=== PATIENT | female | born 1960 | race Caucasian/White ===

== ENCOUNTER 2016-12-27 17:36 | Emergency (ER) | payer BC ==
[2016-12-27] MEDS ORDERED: MORPHINE 2 MG/ML SYRINGE IVP STA ×2 (18:17→19:23)
[2016-12-27] MEDS ORDERED: SODIUM CHLORIDE 0.9% 1,000 ML IV ONE (18:18)
[2016-12-27] MEDS ORDERED: MORPHINE 2 MG/ML SYRINGE ONE (18:26)
[2016-12-27] MEDS ORDERED: NITROGLYCERIN SL 0.4 MG TABLET SL ONE (19:09)
[2016-12-27] MEDS: NITROGLYCERIN SL 0.4 MG TABLET SL PRN ×3 (19:12→20:28)
[2016-12-27] MEDS ORDERED: ASPIRIN CHEW 81 MG TABLET PO STA (19:23)
[2016-12-27] MEDS ORDERED: ASPIRIN CHEW 81 MG TABLET ONE (19:25)
[2016-12-27] MEDS ORDERED: HEPARIN 5,000 UNIT/ML VIAL IVP ONE (20:28)
[2016-12-27] MEDS ORDERED: NITROGLYCERIN 50 MG/250 ML 250 ML IV STA (20:28)
[2016-12-27] MEDS ORDERED: HEPARIN 25,000 UNITS/500 ML 500 ML IV STA (20:35)
[2016-12-27] MEDS ORDERED: HEPARIN 25,000 UNITS/500 ML 500 ML IV ONE (20:36)
[2016-12-27] MEDS ORDERED: NITROGLYCERIN 50 MG/250 ML 250 ML IV ONE (20:36)
[2016-12-27] MEDS ORDERED: HEPARIN 5,000 UNIT/ML VIAL ONE (20:36)
== END 2016-12-27 22:08 | disposition short-term general hospital (02) ==
DX: I21.4 Non-ST elevation (NSTEMI) myocardial infarction (principal); I25.10 Atherosclerotic heart disease of native coronary artery without angina pectoris; I25.2 Old myocardial infarction; I10 Essential (primary) hypertension; Z95.1 Presence of aortocoronary bypass graft; E78.00 Pure hypercholesterolemia, unspecified; Z79.82 Long term (current) use of aspirin
CPT/HCPCS: 36415; 71010; 80053; 83690; 84484; 85025; 85379; 93005; 93010; 96365; 96368; 96375; 96376; 99285; A9270

== ENCOUNTER 2016-12-27 22:08 | Outpatient (CLI) | payer BC | END 2016-12-27 22:09 | disposition short-term general hospital (02) | DX: I21.4 Non-ST elevation (NSTEMI) myocardial infarction (principal) | CPT/HCPCS: A0170; A0425; A0426 ==

== ENCOUNTER 2017-01-29 14:03 | Emergency (ER) | payer BC ==
[2017-01-29 14:16] VITALS: BP 140/90
--- NOTE | 2017-01-29 14:21 | ED Physician Documentation ---
PD HPI UPPER EXT INJURY - Stated complaint Stated Complaint: PINKY INJURY - Chief complaint Chief Complaint: Ext Problem - History obtained from History obtained from: Patient - History of Present Illness Location: Left, Finger (5th digit) Type of injury: Other (hit it on a wooden console) Where injury occurred: Home Timing - onset: How many days ago (2) Timing - duration: Days (2) Timing - details: Abrupt onset Pain level max: 8 Pain level now: 5 Improved by: Rest, Ice, Immobilization Worsened by: Moving, Palpating Associated symptoms: Swelling, Discolored (ecchymosis). No: Weakness, Numbness , Tingling Similar symptoms before: Has not had sx before Recently seen: Not recently seen Review of Systems Neurologic: denies: Focal weakness, Numbness PD PAST MEDICAL HISTORY - Past Medical History Cardiovascular: Hypertension, High cholesterol, Coronary artery disease, [place] - Past Surgical History Past Surgical History: Yes General: Cholecystectomy Ortho: Arthroscopic surgery Cardiovascular: CABG - Present Medications Home Medications: Ambulatory Orders Medication Instructions Recorded Confirmed Aspirin 81 mg PO DAILY 04/04/13 01/29/17 Losartan [Cozaar] 40 mg PO DAILY 10/09/13 01/29/17 Duloxetine HCl [Cymbalta] 60 mg PO DAILY 05/18/16 01/29/17 Pravastatin Sodium [Pravachol] 1 tab PO DAILY 05/18/16 01/29/17 Isosorbide Dinitrate [Isordil] 1 tab PO DAILY 01/29/17 01/29/17 Metoprolol Tartrate 50 mg PO BID 01/29/17 01/29/17 - Allergies Allergies/Adverse Reactions: Allergies Allergy/AdvReac Type Severity Reaction Status Date / Time No Known Drug Allergies Allergy Verified 01/29/17 14:16 - Social History Does the pt smoke?: No Smoking Status: Never smoker Does the pt drink ETOH?: No Does the pt have substance abuse?: No - Immunizations Immunizations are current?: Yes Immunizations: TDAP current <10years - POLST Patient has POLST: No PD ED PE NORMAL - Vitals Vital signs reviewed: Yes - General General: Alert and oriented X 3 - Derm Derm: Warm and dry - Extremities Extremities: Other (L 5th digit, swelling, TTP over the distal phalanx and mid phalanx. NVI. no subungual hematoma) - Neuro Neuro: Alert and oriented X 3 Results - Vitals Vitals: Vital Signs - 24 hr 01/29/17 14:12 Temperature 36.3 C L Heart Rate 105 H Respiratory 18 Rate Blood Pressure 140/90 H O2 Saturation 99 Oxygen O2 Source Room air - Rads (name of study) L 5th digit Radiology: Prelim report reviewed, EMP read contemporaneously, See rad report ( Small mildly displaced avulsion fracture from the dorsal fifth distal phalangeal base) Procedures - Splint (location) 5th digit Splint applied by: Physician, Tech Type of splint: Metal foam finger splint (hyperextension) Other: Patient tolerated well PD MEDICAL DECISION MAKING - ED course Complexity details: reviewed results, considered differential, d/w patient ED course: Patient with a mildly displaced avulsion fracture at the base of the fifth distal phalanx. Placed in a hyperextension finger splint. We will have her follow-up with orthopedics. Neurovascularly intact. Patient counseled regarding signs and symptoms for which I believe and urgent re-evaluation would be necessary. Patient with good understanding of and agreement to plan and is comfortable going home at this time This document was made in part using voice recognition software. While efforts are made to proofread this document, sound alike and grammatical errors may occur. Departure - Departure Disposition: 01 Home, Self Care Clinical Impression: Closed fracture of distal phalanx of digit of hand Condition: Good Instructions: ED Fx Finger Closed Follow-Up: Yordy Wilkins MD [Primary Care Provider] - [facility] [Provider Group] - Within 1 week () Comments: You need to follow up with orthopedics for further evaluation and care. Discharge Date/Time: 01/29/17 14:48
--- NOTE | 2017-01-29 14:59 | XRAY Preliminary Report ---
Exam: XR Finger(s) LT IMPRESSION: Small mildly displaced avulsion fracture from the dorsal fifth distal phalangeal base. [facility] SITE ID: [id number]
--- NOTE | 2017-01-29 15:01 | XRAY Report ---
EXAM: LEFT FIFTH DIGIT RADIOGRAPHY EXAM DATE: 01/29/2017 02:37 PM. CLINICAL HISTORY: Left digit crush injury 2 days ago with pain, bruising, and swelling. COMPARISON: None. TECHNIQUE: 3 views. FINDINGS: Bones: Mildly displaced small avulsion fracture from the dorsal base of the fifth distal phalanx. Joints: Normal alignment. Soft Tissues: Soft tissue swelling overlying the fracture site. IMPRESSION: Small mildly displaced avulsion fracture from the dorsal fifth distal phalangeal base. [facility] Referring Provider Line: [phone] SITE ID: [id number]
== END 2017-01-29 14:48 | disposition home or self-care (01) ==
LOC: ED 14:03
DX: S62.637A Displaced fracture of distal phalanx of left little finger, initial encounter for closed fracture (principal); W22.03XA Walked into furniture, initial encounter; Y92.009 Unspecified place in unspecified non-institutional (private) residence as the place of occurrence of the external cause; I10 Essential (primary) hypertension
CPT/HCPCS: 29130; 73140; 99283

== ENCOUNTER 2017-05-16 09:44 | Emergency (ER) | payer BC ==
[2017-05-16 09:49] VITALS: BP 147/86
[2017-05-16] MEDS ORDERED: DEXAMETHASONE 10 MG/ML VIAL PO STA (10:20)
--- NOTE | 2017-05-16 10:23 | ED Physician Documentation ---
PD HPI HEENT - Stated complaint Stated Complaint: SINUS - Chief complaint Chief Complaint: Heent - History obtained from History obtained from: Patient, Family - History of Present Illness Timing - onset: How many days ago (5) Timing - duration: Days (5) Timing - details: Gradual onset, Still present Location: Sinuses Improves: Medication Associated symptoms: Congestion, Rhinorrhea, Headache, Cough Similar symptoms before: Diagnosis (sinusitis) Recently seen: Not recently seen - Additional information Additional information: 57-year-old female with a history of coronary artery disease and hypertension has developed sinus symptoms again. She has had sinus infection previously was last treated 3 months ago. She has developed symptoms again she is developed a bit of sinus congestion right maxillary sinus pain cough drainage down the back of her throat. She is also had some diarrhea and nausea associated with this. She has a small spot of skin on her left lower abdominal wall that is erythematous and consistent with she with what she has had previously with MRSA. Review of Systems Constitutional: reports: Fatigue. denies: Fever, Chills Eyes: denies: Decreased vision Ears: reports: Loss of hearing, Ear pain Nose: reports: Rhinorrhea / runny nose, Congestion, Sinus pressure / pain Throat: reports: Sore throat Cardiac: denies: Chest pain / pressure, Palpitations Respiratory: reports: Cough. denies: Dyspnea GI: reports: Nausea, Diarrhea. denies: Abdominal Pain, Vomiting, Constipation : denies: Dysuria, Frequency Skin: reports: Lesions Musculoskeletal: denies: Neck pain, Back pain, Extremity pain Neurologic: denies: Generalized weakness, Focal weakness, Numbness PD PAST MEDICAL HISTORY - Past Medical History Past Medical History: Yes Cardiovascular: Hypertension, High cholesterol, Coronary artery disease, [place] - Past Surgical History Past Surgical History: Yes General: Cholecystectomy Ortho: Arthroscopic surgery Cardiovascular: CABG - Present Medications Home Medications: Ambulatory Orders Medication Instructions Recorded Confirmed Aspirin 81 mg PO DAILY 04/04/13 05/16/17 Losartan [Cozaar] 40 mg PO DAILY 10/09/13 05/16/17 Duloxetine HCl [Cymbalta] 60 mg PO DAILY 05/18/16 05/16/17 Pravastatin Sodium [Pravachol] 1 tab PO DAILY 05/18/16 05/16/17 Isosorbide Dinitrate [Isordil] 1 tab PO DAILY 01/29/17 05/16/17 Metoprolol Tartrate 50 mg PO BID 01/29/17 05/16/17 Azithromycin [Zithromax] 250 mg PO DAILY #6 tablet 05/16/17 Mupirocin Calcium [Bactroban] 1 gm TP BID #15 cream..g. 05/16/17 - Allergies Allergies/Adverse Reactions: Allergies Allergy/AdvReac Type Severity Reaction Status Date / Time No Known Drug Allergies Allergy Verified 05/16/17 09:49 - Social History Does the pt smoke?: No Smoking Status: Never smoker Does the pt drink ETOH?: No Does the pt have substance abuse?: No - Immunizations Immunizations are current?: Yes Immunizations: TDAP current <10years - POLST Patient has POLST: No PD ED PE NORMAL - Vitals Vital signs reviewed: Yes (Hypertensive) - General General: No acute distress, Well developed/nourished - HEENT HEENT: Atraumatic, PERRL, EOMI, Other (The left TM is with erythema along the umbo and rounding of the landmark the right TM is distorted and erythematous. There is sinus point tenderness over the right maxillary sinus. The frontal sinuses without tenderness the left maxillary sinuses without tenderness the pharynx is benign.) - Neck Neck: Supple, no meningeal sign, No bony TTP - Cardiac Cardiac: RRR, No murmur - Respiratory Respiratory: No respiratory distress - Abdomen Abdomen: Soft, Non tender - Back Back: No CVA TTP, No spinal TTP - Derm Derm: Normal color, Warm and dry, Other (There is a sub-centimeter erythematous papule on the left lower abdominal wall consistent with a dermal MRSA infection. There does not appear to be any cellulitis and specifically no fluctuance.) - Extremities Extremities: No deformity, No edema - Neuro Neuro: No motor deficit, No sensory deficit, Normal speech - Psych Psych: Normal mood, Normal affect Results - Vitals Vitals: Vital Signs - 24 hr 05/16/17 09:46 Temperature 36.2 C L Heart Rate 72 Respiratory 16 Rate Blood Pressure 147/86 H O2 Saturation 95 Oxygen O2 Source Room air PD MEDICAL DECISION MAKING - ED course Complexity details: reviewed old records, considered differential, d/w patient, d/w family ED course: 57-year-old female sinus symptoms has had sinus infection previously and appears to have a MRSA skin lesion as well. Here in the emergency department she is administered dexamethasone [address] her on some azithromycin I have instructed her to follow-up with her primary should she have failure of this regimen. We will also place her on some Bactroban ointment for the MRSA. Departure - Departure Disposition: Home, Self Care Clinical Impression: MRSA infection Sinusitis, acute maxillary Qualifiers: Recurrence: recurrent Qualified Code(s): J01.01 - Acute recurrent maxillary sinusitis Condition: Stable Instructions: ED Sinusitis Abx Tx, MRSA Infec Follow-Up: Yordy Wilkins MD [Primary Care Provider] - Prescriptions: Mupirocin Calcium [Bactroban] 1 gm TP BID #15 cream..g. Azithromycin [Zithromax] 250 mg PO DAILY #6 tablet
[2017-05-16] MEDS ORDERED: DEXAMETHASONE 10 MG/ML VIAL ONE (10:30)
[2017-05-16] MEDS ORDERED: CHERRY SYRUP 10 ML UDC PO ONE (10:30)
== END 2017-05-16 10:32 | disposition home or self-care (01) ==
LOC: ED 09:44
DX: J01.01 Acute recurrent maxillary sinusitis (principal); L08.9 Local infection of the skin and subcutaneous tissue, unspecified; B95.62 Methicillin resistant Staphylococcus aureus infection as the cause of diseases classified elsewhere; I10 Essential (primary) hypertension; I25.10 Atherosclerotic heart disease of native coronary artery without angina pectoris; Z95.1 Presence of aortocoronary bypass graft; I25.2 Old myocardial infarction; E78.00 Pure hypercholesterolemia, unspecified; Z79.82 Long term (current) use of aspirin
CPT/HCPCS: 99283; A9270

== ENCOUNTER 2019-10-18 07:37 | Outpatient (CLI) | payer MEDICAID | END 2019-10-18 07:38 | disposition critical access hospital (66) | LOC: EMS 07:37 | PROVIDERS: ATTEND Surgery | DX: M79.602 Pain in left arm (principal) | CPT/HCPCS: A0425; A0427; A0999 ==

== ENCOUNTER 2019-10-18 08:12 | Emergency (ER) | payer BC, MEDICAID ==
[2019-10-18] MEDS ORDERED: KETOROLAC 30 MG/ML VIAL IVP STA (08:22)
--- NOTE | 2019-10-18 08:26 | ED Physician Documentation ---
History of Present Illness - Stated complaint Stated Complaint: ARM PX - History obtained from History obtained from: Patient, Family, EMS - History of Present Illness Timing: How many weeks ago (10) - Additonal information Additional information: 59-year-old female with history of coronary artery disease status post CABG has developed pain in her left arm. She has had this pain for about 2-1/2 months it hurts when she moves her arm in the back of her elbow. She is able to get comfortable if she is motionless but if she stays motionless too long the arm will get painful as well. This morning she had severe pain bad enough that she ended up calling the ambulance. She has had some relief of the pain with use of intravenous fentanyl. The patient denies any specific current illness associated with this. She states that she has been having some difficulty getting comfortable the entire time. Her pain is progressively gotten worse. She does not recall an injury to the area. She has not had these symptoms previously. Review of Systems Constitutional: denies: Fever, Chills, Myalgias Eyes: denies: Decreased vision Ears: denies: Ear pain Nose: denies: Rhinorrhea / runny nose, Congestion Throat: denies: Sore throat Cardiac: denies: Chest pain / pressure, Palpitations Respiratory: denies: Dyspnea, Cough GI: denies: Abdominal Pain, Nausea, Vomiting : denies: Dysuria, Frequency Skin: denies: Rash Musculoskeletal: reports: Extremity pain, Joint pain. denies: Neck pain, Back pain, Extremity swelling, Joint swelling Neurologic: denies: Generalized weakness, Focal weakness, Numbness PD PAST MEDICAL HISTORY - Past Medical History Cardiovascular: Hypertension, High cholesterol, Coronary artery disease, [place] - Past Surgical History Past Surgical History: Yes General: Cholecystectomy Ortho: Arthroscopic surgery Cardiovascular: CABG - Present Medications Home Medications: Ambulatory Orders Medication Instructions Recorded Confirmed Aspirin 81 mg PO DAILY 04/04/13 05/16/17 Losartan [Cozaar] 40 mg PO DAILY 10/09/13 05/16/17 Duloxetine HCl [Cymbalta] 60 mg PO DAILY 05/18/16 05/16/17 Pravastatin Sodium [Pravachol] 1 tab PO DAILY 05/18/16 05/16/17 Isosorbide Dinitrate [Isordil] 1 tab PO DAILY 01/29/17 05/16/17 Metoprolol Tartrate 50 mg PO BID 01/29/17 05/16/17 Azithromycin [Zithromax] 250 mg PO DAILY #6 tablet 05/16/17 Mupirocin Calcium [Bactroban] 1 gm TP BID #15 cream..g. 05/16/17 Hydrocodone/Acetaminophen 1 - 2 each PO Q6H PRN #14 tablet 10/18/19 [Hydrocodon-Acetaminophen 5-325] - Allergies Allergies/Adverse Reactions: Allergies Allergy/AdvReac Type Severity Reaction Status Date / Time No Known Drug Allergies Allergy Verified 10/18/19 08:26 - Social History Does the pt smoke?: No Smoking Status: Never smoker Does the pt drink ETOH?: No Does the pt have substance abuse?: No - Immunizations Immunizations are current?: Yes Immunizations: TDAP current <10years - POLST Patient has POLST: No PD ED PE NORMAL - Vitals Vital signs reviewed: Yes - General General: Alert and oriented X 3, No acute distress, Well developed/nourished - HEENT HEENT: Atraumatic, PERRL, EOMI - Neck Neck: Supple, no meningeal sign, No bony TTP - Cardiac Cardiac: RRR, No murmur - Respiratory Respiratory: No respiratory distress, Clear bilaterally - Abdomen Abdomen: Soft, Non tender - Back Back: No CVA TTP, No spinal TTP - Derm Derm: Normal color, Warm and dry, No rash - Extremities Extremities: No deformity, No edema, Other (There is no specific point tenderness to the left upper extremity. There is pain with movement that is dire cted to the posterior elbow. There is not much exacerbation of the pain with supination or pronation of the forearm and there is less pain with the elbow supported while moving it through a ROM. There is much worse pain if the patient is attempting to move it herself. The shoulder is not tender specifically and movement of the shoulder joint hurts at the elbow. There is no swelling redness or palpable mass or crepitence to the left arm. Distal n/v is intact. ) - Neuro Neuro: Alert and oriented X 3, research aide 2-12 intact, No motor deficit, No sensory deficit, Normal speech Eye Opening: Spontaneous Motor: Obeys Commands Verbal: Oriented GCS Score: 15 - Psych Psych: Normal mood, Normal affect Results - Vitals Vitals: Vital Signs - 24 hr 10/18/19 10/18/19 10/18/19 08:11 09:30 10:00 Temperature 36.3 C L Heart Rate 77 61 61 Respiratory 16 17 14 Rate Blood Pressure 147/92 H 154/80 H 162/86 H O2 Saturation 98 95 94 10/18/19 11:00 Temperature Heart Rate 64 Respiratory 16 Rate Blood Pressure 153/85 H O2 Saturation 95 Oxygen O2 Source Room air - EKG (time done) 0835 Rate: Rate (enter#) (61) Rhythm: NSR Ischemia: Normal ST segments Compare to prior EKG: Unchanged from prior EKG (SPT 12-27-2016 no changes ) Computer interpretation: Agree with computer - Labs Labs: Laboratory Tests 10/18/19 10/18/19 10/18/19 09:21 09:21 09:21 WBC 7.8 RBC 4.78 Hgb 14.8 Hct 45.3 MCV 94.8 MCH 31.0 MCHC 32.7 RDW 12.6 Plt Count 236 MPV 10.2 Neut # (Auto) 5.3 Lymph # (Auto) 1.7 [place] # (Auto) 0.5 Eos # (Auto) 0.2 Baso # (Auto) 0.1 Absolute Nucleated RBC 0.00 Nucleated RBC % 0.0 Sodium 137 Potassium 4.0 Chloride 104 Carbon Dioxide 22 Anion Gap 11.0 BUN 20 Creatinine 0.6 Estimated GFR (MDRD) 102 Glucose 127 H Calcium 8.7 Total Bilirubin 2.0 H AST 30 ALT 42 Alkaline Phosphatase 38 L Troponin I High Sens 5.7 Total Protein 7.1 Albumin 3.9 Globulin 3.2 Albumin/Globulin Ratio 1.2 Lipase 39 - Rads (name of study) humerus Radiology: Prelim report reviewed (Impression: No fracture or bone lesion seen.), EMP read indepedently, See rad report Elbow Radiology: Prelim report reviewed, EMP read indepedently, See rad report Chest Radiology: Prelim report reviewed (Impression: No acute radiographic cardiopulmonary process.), EMP read indepedently, See rad report PD MEDICAL DECISION MAKING - ED course Complexity details: reviewed results, re-evaluated patient, considered differential, d/w patient, d/w family ED course: 59-year-old female with a 2-month plus history of pain in the left arm has been moving from 1 house to another in [place]. She has done a lot of lifting. Today she has some tenderness to the arm she has no evidence of fracture on her x-ray or unusual bony abnormality. She is able to move her arm in a range of motion as long as it is supported if there is any tension on the muscles she will have pain. I suspect she has irritated a muscle attachment from a myofascial strain. She is placed into a sling she does have some improvement with use of Toradol and dexamethasone will provide some pain medication. The patient was reassured about her pain and there is no evidence of myocardial infarction. Departure - Departure Disposition: 01 Home, Self Care Clinical Impression: Acute myofascial strain Condition: Stable Instructions: ED Myofascial Pain Syndrome Follow-Up: Yordy Wilkins MD [Primary Care Provider] - Prescriptions: Hydrocodone/Acetaminophen [Hydrocodon-Acetaminophen 5-325] 1 - 2 each PO Q6H PRN #14 tablet PRN Reason: pain
--- NOTE | 2019-10-18 09:19 | XRAY Report ---
Reason: posterior pain with movement Procedure Date: 10/18/2019 Accession Number: [id number] / [id number] Procedure: XR - Elbow 3 View LT CPT Code: Final Report FULL RESULT: EXAM: LEFT ELBOW RADIOGRAPHY EXAM DATE: 10/18/2019 08:57 AM. CLINICAL HISTORY: Posterior pain with movement. COMPARISON: ELBOW 3 VIEW RT 03/15/2016 4:52 PM. TECHNIQUE: 3 views. FINDINGS: Bones: No fracture. No bone lesion. Joints: No dislocation. No effusion. Osteophyte lipping with some joint space loss. Soft Tissues: Normal. No soft tissue swelling. IMPRESSION: 1. No fracture or dislocation. 2. Mild osteoarthritis [facility]
--- NOTE | 2019-10-18 09:20 | XRAY Report ---
Reason: pain with movement Procedure Date: 10/18/2019 Accession Number: [id number] / [id number] Procedure: XR - Humerus LT CPT Code: Final Report FULL RESULT: EXAM: LEFT HUMERUS RADIOGRAPHY EXAM DATE: 10/18/2019 08:57 AM. CLINICAL HISTORY: Pain with movement. COMPARISON: None. TECHNIQUE: 2 views. FINDINGS: Bones: No fracture. No bone lesion. Joints: No dislocation. Degenerative acromioclavicular joint with osteophytosis. Soft Tissues: Normal. No soft tissue swelling. IMPRESSION: No fracture or bone lesion seen [facility]
--- NOTE | 2019-10-18 09:21 | XRAY Report ---
Reason: chest pain Procedure Date: 10/18/2019 Accession Number: [id number] / [id number] Procedure: XR - Chest 2 View X-Ray CPT Code: 44192 Final Report FULL RESULT: EXAM: CHEST RADIOGRAPHY EXAM DATE: 10/18/2019 08:57 AM. CLINICAL HISTORY: Chest pain. COMPARISON: CHEST 1 VIEW 12/27/2016 6:00 PM. TECHNIQUE: 2 views. FINDINGS: Lungs/Pleura: Low volumes. Vascular crowding. No focal opacities. No effusions. Mediastinum: Stable. CABG. Other: Median sternotomy. IMPRESSION: No acute radiographic cardiopulmonary process [facility]
[2019-10-18 09:27] LABS: BASOPHILS # (AUTO) 0.1 10^3/uL (0.0-0.1); BASOPHILS % (AUTO) 0.6 %; EOSINOPHILS # (AUTO) 0.2 10^3/uL (0.0-0.7); EOSINOPHILS % (AUTO) 2.6 %; HGB - HEMOGLOBIN 14.8 g/dL (12.0-16.0); LYMPHOCYTES # (AUTO) 1.7 10^3/uL (1.5-3.5); LYMPHOCYTES % (AUTO) 22.1 %; MEAN CORPUSCULAR HGB CONC 32.7 g/dL (32.0-36.0); MEAN CORPUSCULAR VOLUME 94.8 fL (81.0-99.0); MEAN PLATELET VOLUME 10.2 fL (7.9-10.8); MONOCYTES # (AUTO) 0.5 10^3/uL (0.0-1.0); MONOCYTES % (AUTO) 6.4 %; NEUTROPHILS # (AUTO) 5.3 10^3/uL (1.5-6.6); NEUTROPHILS % (AUTO) 67.9 %; PLT - PLATELET COUNT 236 10^3/uL (130-450); RED BLOOD COUNT 4.78 10^6/uL (4.20-5.40); RED CELL DISTRIBUTION WIDTH 12.6 % (12.0-15.0); WHITE BLOOD COUNT 7.8 x10^3/uL (4.8-10.8)
[2019-10-18 09:51] LABS: ALBUMIN 3.9 g/dL (3.2-5.5); ALBUMIN/GLOBULIN RATIO 1.2 (1.0-2.2); CALCIUM 8.7 mg/dL (8.5-10.3); CREATININE 0.6 mg/dL (0.4-1.0); TOTAL PROTEIN 7.1 g/dL (6.7-8.2)
[2019-10-18] MEDS ORDERED: DEXAMETHASONE 10 MG/ML VIAL IVP STA (09:54)
[2019-10-18 11:07] VITALS: BP 153/85
== END 2019-10-18 11:18 | disposition home or self-care (01) ==
LOC: EDUNIT# → ED 08:12
DX: I10 Essential (primary) hypertension (principal); S46.912A Strain of unspecified muscle, fascia and tendon at shoulder and upper arm level, left arm, initial encounter; X50.0XXA Overexertion from strenuous movement or load, initial encounter; Y93.89 Activity, other specified
CPT/HCPCS: 36415; 71046; 80053; 83690; 84484; 85025; 93005; 96374; 96375; 99284